=== PATIENT | male | born 1995 | race Two or more races ===

== ENCOUNTER 2021-04-22 09:31 | Emergency (ER) | payer SELFPAY ==
[~2021-04-22] VITALS: Ht 165.1 cm; Wt 100.0 kg
[2021-04-22 10:17] VITALS: BP 129/60
--- NOTE | 2021-04-22 10:20 | RAD ---
Right ankle 3 views. HISTORY: Fall, medial malleolus swelling 3 views were taken of the right ankle. There is a mildly displaced fracture of the medial malleolus. The lateral malleolus appears intact. There is soft tissue swelling. IMPRESSION: 1. Fracture medial malleolus right ankle. Electronically signed by: Tate Saavedra MD (04/22/2021 10:18 AM) [id number]
[2021-04-22] MEDS ORDERED: HYDROcodone/APAP 5/325MG 1 TAB TABLET PO ONE (10:30)
[2021-04-22] MEDS ORDERED: HYDR-2761 PO (10:42)
--- NOTE | 2021-04-22 10:42 | ED.ADGEN ---
Past Medical History Past Medical History: No Pertinent History Past Surgical History: No Surgical History Smoking Status: Never Smoker Alcohol Use: Occasionally General Adult EDM: Chief Complaint: ANKLE PROBLEM HPI: HPI: Patient is a 25 year old male coming in for medial right ankle pain and swelling after falling from a large prior to arrival. Patient states he fell onto his right leg and little bit of pain in his right thigh that is better. Is not been able to bear weight. Is otherwise been well. Did not take anything for pain prior to arrival Review of Systems: Review of Systems: All other systems within normal limits except for as noted in the HPI Current Medications: Current Medications Medications (Trade) Dose Ordered Sig/Ky Start Time Stop Time Status Last Admin Dose Admin Acetaminophen/ Hydrocodone Bitart (Lortab 5/325) 1 tab 1X ONCE 04/22/21 10:30 04/22/21 10:31 DC 04/22/21 10:17 1 TAB Allergies: Allergies: Allergies Coded Allergies Type Severity Reaction Last Updated Verified No Known Drug Allergies 04/22/21 No Physical Exam: PE: Constitutional: Well developed, well nourished, no acute distress, non-toxic appearance. [] HENT: Normocephalic, atraumatic, bilateral external ears normal, nose normal. [] Eyes: PERRLA, conjunctiva normal, no discharge. [] Neck: No rigidity, supple, no stridor. [] Cardiovascular: Regular rate and rhythm, brisk cap refill [] Lungs & Thorax: Non labored symmetric respirations, no tachypnea or respiratory distress [] Abdomen: Soft, nondistended. Skin: Warm, dry, no erythema, no rash. [] Back: Unremarkable Extremities: No deformities, range of motion grossly intact, no lower extremity edema. Right lower extremity: Tenderness and swelling over right medial malleolus, no tenderness over lateral malleolus, calcaneus, dorsum of the foot. Intact pulses with brisk cap refill. [] Neurologic: Alert and oriented X 3, no focal deficits noted. [] Psychologic: Affect normal, judgement normal, mood normal. [] Current Patient Data: Vital Signs: Vital Signs Date Time Temp Pulse Resp B/P (MAP) Pulse Ox O2 Delivery O2 Flow Rate FiO2 04/22/21 10:17 16 99 Room Air 04/22/21 10:17 77 129/60 (83) 04/22/21 09:40 98.4 98.4 EKG: EKG: [] Heart Score: C/O Chest Pain: No Risk Factors: Risk Factors: DM, Current or recent (<one month) smoker, HTN, HLP, family history of CAD, obesity. Risk Scores: Score 0 - 3: 2.5% MACE over next 6 weeks - Discharge Home Score 4 - 6: 20.3% MACE over next 6 weeks - Admit for Clinical Observation Score 7 - 10: 72.7% MACE over next 6 weeks - Early Invasive Strategies Radiology/Procedures: Radiology/Procedures: [facility] [address] [place], [place] [id number] IMAGING REPORT Signed PATIENT: DARINEL MORELANDACCOUNT: [id number] : 1995 LOCATION: ER AGE: 25 SEX: M EXAM STATUS: REG ER ORD. PHYSICIAN: JULIA VICENTE MD REASON: Fall, medial malleolus swelling PROCEDURE: ANKLE RIGHT 3V Right ankle 3 views. HISTORY: Fall, medial malleolus swelling 3 views were taken of the right ankle. There is a mildly displaced fracture of the medial malleolus. The lateral malleolus appears intact. There is soft tissue swelling. IMPRESSION: 1. Fracture medial malleolus right ankle. Electronically signed by: Tate Tay MD (04/22/2021 10:18 AM) [id number] DICTATED and SIGNED BY: TATE TAY MD DATE: 04/22/21 [id number] [] Course & Med Decision Making: Course & Med Decision Making Pertinent Labs and Imaging studies reviewed. (See chart for details) [] Dragon Disclaimer: Dragon Disclaimer: This electronic medical record was generated, in whole or in part, using a voice recognition dictation system. Departure Departure Impression: Primary Impression: Fracture of medial malleolus, right, closed Disposition: 01 HOME / SELF CARE / HOMELESS Condition: STABLE Referrals: [facility] Patient Instructions: Cast or Splint Care Additional Instructions: Call to make full appointment with orthopedic surgeon. [facility] [address] [facility], [address] [address] Scripts Hydrocodone Bit/Acetaminophen (HYDROCODONE-APAP 5-325 ) 1 Tab Tablet 1 TAB PO PRN Q6HRS PRN for PAIN for 5 Days, #20 TAB 0 Refills Prov: JULIA VICENTE MD 04/22/21 JULIA VICENTE MD Apr 22, 2021 10:42
--- NOTE | 2021-04-22 11:05 | NUR ---
Neurovasculars intact before and after application of splint. Crutches to be dispensed/training done by [facility] upon pt's dismissal. Dr. Mayorga inspected/approved the splint.
== END 2021-04-22 12:00 | disposition home or self-care (01) ==
LOC: ER 09:31
DX: S82.51XA Displaced fracture of medial malleolus of right tibia, initial encounter for closed fracture (principal); W18.39XA Other fall on same level, initial encounter; Y93.79 Activity, other specified sports and athletics; Y92.89 Other specified places as the place of occurrence of the external cause; Y99.8 Other external cause status
CPT/HCPCS: 29515; 73610; 99283